=== PATIENT | female | born 1945 | race Caucasian/White ===

== ENCOUNTER 2024-02-13 12:42 | Emergency (ER) | payer MEDICARE, OTHER ==
[~2024-02-13] VITALS: Ht 160 cm; Wt 76.2 kg
[2024-02-13] MEDS: ACETAMINOPHEN ES 500 MG TABLET PO ONE (13:07)
[2024-02-13] MEDS ORDERED: ACETAMINOPHEN ES 500 MG TABLET ONE (13:07)
[2024-02-13 16:40] VITALS: BP 147/71; TEMP 98.2; O2SAT 100
== END 2024-02-13 16:40 | disposition home or self-care (01) ==
LOC: ER 12:42
DX: S32.028A Other fracture of second lumbar vertebra, initial encounter for closed fracture (principal); S00.03XA Contusion of scalp, initial encounter; G40.909 Epilepsy, unspecified, not intractable, without status epilepticus; I10 Essential (primary) hypertension; J44.9 Chronic obstructive pulmonary disease, unspecified; W19.XXXA Unspecified fall, initial encounter; Y93.89 Activity, other specified; Y92.89 Other specified places as the place of occurrence of the external cause; Y99.8 Other external cause status
CPT/HCPCS: 70450-TC; 72100-TC; 72125-TC; 73521